=== PATIENT | female | born 2005 | race Caucasian/White ===

== ENCOUNTER 2024-12-29 22:56 | Emergency (ER) | payer SELFPAY ==
[2024-12-29 22:58] VITALS: BP 132/72; PULSE 99; RESP 16; TEMP 36.7; O2SAT 99; BMI 30.4
--- NOTE | 2024-12-29 23:48 | EDS_ITS ---
HPI History of Present Illness Chief Complaint: Allergic Reaction Informant: patient Narrative Narrative: Patient is a 19-year-old female who states that roughly 3 to 5 days ago she was started on new medications. However she does not know what these medications are. She states in the last 2 days she has noticed a rash that is from her feet to her face. She states with this she has a generally unwell feeling with sore throat and headache. She denies any trouble breathing or swallowing but as she is concerned she may be having an allergic reaction presents for evaluation [facility] Medical History no medical history Home Medications ?Medication ?Instructions ?Recorded ?Last Taken ?Type lidocaine HCl 2 % mucosal solution 15 ml mucous membra ne 4X/DAY PRN 12/29/24 Unknown Rx (Lidocaine Viscous) pain 7 days #420 mL prednisone 20 mg tablet 40 mg (2 x 20 mg) PO DAILY 7 days 12/29/24 Unknown Rx #14 tabs Allergy/AdvReac Type Severity Reaction Status Date / Time Unable to Assess Allergy Verified 12/29/24 22:59 Social History Smoking Status: Never smoker [facility] ED Constitutional Constitutional ED: Reports chills, fever(s), subjective and other Details: Positive fatigue ENT ENT ED: Reports sore throat; Denies rhinorrhea Cardiovascular Cardiovascular: Denies chest pain Respiratory/Chest Respiratory/Chest: Denies cough or dyspnea Gastrointestinal Gastrointestinal: Denies abdominal pain, diarrhea, nausea or vomiting Genitourinary Genitourinary ED: Denies dysuria Musculoskeletal Musculoskeletal: Reports myalgias Integumentary Reports rash Neurologic Neurologic: Reports headache(s) Hematologic/Lymphatic Hematologic/Lymphatic: Denies easy bleeding or easy bruising Allergic/Immunologic Allergic/Immunologic ED: Denies mouth swelling or tongue swelling EXAM Physical Exam Const Vital Signs: 12/29/24 22:58 12/30/24 00:13 Temperature 98.1 F 98.3 F Temperature Source Oral Pulse Rate 99 77 Respiratory Rate 16 18 Blood Pressure 132/72 H 117/60 Blood Pressure Mean 92 79 Pulse Ox 99 98 Oxygen Delivery Method Room Air Positive well nourished and well developed General Appearance ED: well developed HEENT HEENT Narrative: Normocephalic atraumatic No tongue or lip swelling noted Patient does have erythema in the posterior pharynx with scant/scattered herpangina lesions No trismus change in voice or difficulty with secretions No obvious abscess formation No signs of angioedema or anaphylaxis Eyes PERRL and EOMs intact bilaterally General Eye ED: Negative for scleral icterus Neck supple Resp normal respiratory effort and clear to auscultation bilaterally Resp Narrative: No nasal flaring retractions tachypnea or accessory muscle use Cardio regular rate and regular rhythm Extremity normal to inspection Neuro oriented x3, CN's II-XII intact bilaterally and no sensory deficits noted Sensorium / Orientation: alert Motor Exam: strength 5/5 throughout Psych Psych Narrative: Patient has a depressed/flat affect Skin Skin Narrative: Patient has a erythematous maculopapular rash that is blanchable in nature. It is diffusely across the body but localized more heavily along the feet and palmar surface of the hands. There is also erythema across the forehead and bilateral cheek region. No vesicular or pustule changes noted MDM MDM MDM Narrative Medical decision making narrative: Patient presented to ER with stable vitals. She reported 2 days of rash and there is no secondary findings to suggest angioedema or anaphylaxis so therefore there is no need for emergent airway stabilization/intubation. She reported she has recently started medications and she is unsure it could be potential allergic reaction. However as she has general unwell feeling of headache fatigue myalgias and sore throat along with herpangina lesions in the posterior pharynx and rash that is on the feet and hands I do feel this is yxwm-wvtf-vih-mouth disease and not an allergic reaction. After stating this to the patient she states her daughter was diagnosed with recently. Therefore as patient does have known exposure to the virus and has a physical exam consistent with this I do feel it is the most likely diagnosis. As she does not have signs of airway edema or compromise there is no need for further intervention. Patient can be placed on symptomatic care and is otherwise safe for discharge. History & Record Review Discussion w/independent historian: Patient Discharge Plan Triage Chief Complaint: Allergic Reaction ED Provider: Long Arriaga Dx/Rx/DC Orders Clinical Impression: Hand, foot and mouth disease Instructions: Hand Foot Mouth Disease Prescriptions: New lidocaine HCl [Lidocaine Viscous] 2 % solution 15 ml mucous membrane 4X/DAY PRN (Reason: pain) 7 Days Qty: 420 0RF prednisone 20 mg tablet 40 mg PO DAILY 7 Days Qty: 14 0RF Primary Care Provider: GODWIN HANEY Activity Restrictions/Additional Instructions: Your history and exam is most consistent with pxnh-pjxj-dps-mouth disease. Therefore continue the medications you were prescribed previously as directed. Continue with Tylenol for pain control and add the lidocaine and prednisone to help with symptom control. Return to the ER if you have any further concerns Print Language: Danish Disposition Disposition: Home, Self Care Discharge Date/Time: 12/30/24 00:35
[2024-12-30] MEDS: Lidocaine 2% Viscous15 ML UDC 15 ML PO (00:01)
[2024-12-30 00:13] VITALS: BP 117/60; PULSE 77; RESP 18; TEMP 36.8; O2SAT 98
== END 2024-12-30 00:35 | disposition home or self-care (01) ==
PROVIDERS: Emergency Provider Emergency Medicine; Visit Provider Emergency Medicine
DX: B08.4 Enteroviral vesicular stomatitis with exanthem (principal); J02.9 Acute pharyngitis, unspecified; R51.9 Headache, unspecified; M79.10 Myalgia, unspecified site
CPT/HCPCS: 99283